=== PATIENT | female | born 1975 | race Caucasian/White ===

== ENCOUNTER → 2023-09-10 07:38 | Outpatient (REF) | payer OTHER, SELFPAY | LOC: MRI 3T 07:38 | PROVIDERS: ATTENDING PHYSICIAN Psychiatry & Neurology Neurology; FAMILY PHYSICIAN Family Medicine | DX: R20.2 Paresthesia of skin (principal); H53.9 Unspecified visual disturbance | CPT/HCPCS: 70544; 70553; A9575 ==

== ENCOUNTER → 2024-03-16 19:24 | Outpatient (REF) | payer OTHER, SELFPAY | LOC: WDC 19:24 | PROVIDERS: ATTENDING PHYSICIAN Family Medicine | DX: Z12.31 Encounter for screening mammogram for malignant neoplasm of breast (principal) | CPT/HCPCS: 77063; 77067 ==